=== PATIENT | male | born 1970 | race Two or more races ===

== ENCOUNTER 2025-05-21 07:30 | Emergency (ER) | payer SELFPAY ==
[~2025-05-21] VITALS: Ht 170.2 cm; Wt 87.5 kg
[2025-05-21] MEDS ORDERED: IBUPROFEN 400 MG TABLET ONE (08:24)
[2025-05-21] MEDS ORDERED: ACETAMINOPHEN 500 MG TABLET ONE (08:24)
[2025-05-21] MEDS: ACETAMINOPHEN 500 MG TABLET PO ONE (08:29)
[2025-05-21] MEDS: IBUPROFEN 400 MG TABLET PO ONE (08:29)
[2025-05-21 08:49] LABS: *BILIRUBIN,URIN NEGATIVE (NEGATIVE); *BLOOD, URINE NEGATIVE (NEGATIVE); *CLARITY,URINE CLEAR (CLEAR); *COLOR,URINE YELLOW (YELLOW); *KETONES,URINE NEGATIVE (NEGATIVE); *PROTEIN,URINE NEGATIVE (NEGATIVE); *UROBILINOGEN,URINE 0.2 E.U./dl (NORMAL); LEUKOCYTE ESTERASE ,URINE NEGATIVE (NEGATIVE); NITRITE, URINE NEGATIVE (NEGATIVE); UGLUCOSE NEGATIVE (NEGATIVE)
[2025-05-21] MEDS ORDERED: ACET-3117 PO (09:07)
[2025-05-21] MEDS ORDERED: IBUP-1955 PO (09:07)
[2025-05-21] MEDS ORDERED: PEDIATRIC ORAL ELECTROLYTE 237 ML BOTTLE ONE (09:23)
[2025-05-21] MEDS: PEDIATRIC ORAL ELECTROLYTE 237 ML BOTTLE PO ONE (09:25)
[2025-05-21 09:29] VITALS: BP 98/69; O2SAT 98
== END 2025-05-21 09:30 | disposition home or self-care (01) ==
LOC: ER 07:30
DX: G89.29 Other chronic pain (principal); M54.50 Low back pain, unspecified
CPT/HCPCS: A4606; A4663; A9150